=== PATIENT | male | born 1990 | race Two or more races ===

== ENCOUNTER 2019-09-09 17:39 | Emergency (ER) | payer BC ==
[~2019-09-09] VITALS: Ht 180.3 cm; Wt 97.5 kg
[2019-09-09 17:57] VITALS: BP 128/66
== END 2019-09-09 20:56 | disposition left against medical advice (07) ==
LOC: ER 17:48
DX: M79.671 Pain in right foot (principal); Z53.21 Procedure and treatment not carried out due to patient leaving prior to being seen by health care provider
CPT/HCPCS: 73660

== ENCOUNTER → 2019-09-20 | Outpatient (CLI) | payer BC ==
[2019-09-20 10:30] LABS: Basophils # (auto) 0 uL; Basophils % (auto) 0.5 % (0.0-2.0); Eosinophils # (auto) 0.1 uL; Eosinophils % (auto) 1.3 % (0.0-7.0); Hematocrit 46.8 % (41.0-53.0); Lymphocytes # (auto) 2.5 uL; Lymphocytes % (auto) 40.6 % (10.0-50.0); Mean Corpuscular Hemoglobin 29.1 pg (28.0-32.0); Mean Corpuscular Hgb Conc. 34.2 g/dL (32.0-36.0); Mean Corpuscular Volume 85.2 fL (80.0-100.0); Monocytes # (auto) 0.3 uL; Monocytes % (auto) 5.7 % (0.0-12.0); Neutrophils # (auto) 3.2 uL; Neutrophils % (auto) 51.9 % (37.0-80.0); Nucleated Red Blood Cells % 0.1 %; Platelet Count (auto) 198 10^3/uL (140-450); Red Blood Cells 5.49 10^6/uL (4.5-5.90); White Blood Cell 6.1 10^3/uL (4.4-10.8)
[2019-09-20 10:54] LABS: Urine Bacteria NONE SEEN /hpf (None Seen); Urine Blood Negative /uL (Negative); Urine Mucus FEW (None Seen); Urine Specific Gravity 1.029 (1.001-1.035); Urine WBC 1 /hpf (0 - 3)
[2019-09-20 10:57] LABS: Calcium 8.9 mg/dL (8.5-10.1); Potassium 3.8 mmol/L (3.5-5.1)
[2019-09-20 11:02] LABS: Bilirubin, Total 1.3 mg/dL (0.2-1.0); Total Protein 7.5 g/dL (6.4-8.2)
== END | disposition home or self-care (01) ==
LOC: LAB 10:11
PROVIDERS: ATTEND Nurse Practitioner
DX: E78.5 Hyperlipidemia, unspecified (principal); R53.83 Other fatigue
CPT/HCPCS: 36415; 80053; 80061; 81001; 84403; 84443; 85025